=== PATIENT | female | born 1960 | race African-American/Black ===

== ENCOUNTER 2016-09-03 00:24 | Emergency (ER) | payer MEDICAID ==
[~2016-09-03] VITALS: Ht 165.1 cm; Wt 80.0 kg
[2016-09-03] MEDS ORDERED: MORPHINE SULFATE 4 MG/ML CPJ (NOT FOR IM USE) IV STA (01:37)
[2016-09-03] MEDS ORDERED: ONDANSETRON HCL 4MG/2ML VIAL IV STA (01:37)
[2016-09-03 01:50] LABS: BASOPHILS % 0.7 % (0.0-2.0); EOSINOPHILS % 2.2 % (0.0-5.0); HEMATOCRIT. 39.1 % (36.0-48.0); HEMOGLOBIN. 13.2 g/dL (12.0-16.0); LYMPHOCYTES % 43.2 % (20.0-50.0); MEAN CORPUSCULAR HEMOGLOBIN 29.5 pg (28.0-32.0); MEAN CORPUSCULAR VOLUME 87.6 fL (81.0-99.0); MEAN PLATELET VOLUME 7.1 fl (7.4-10.4); MONOCYTES % 11.1 % (2.0-8.0); NEUTROPHILS % 42.8 % (40.0-76.0); PLATELET 454 x1000/uL (130-400); RED BLOOD CELL COUNT 4.46 mill/uL (4.2-5.4); RED CELL DISTRIBUTION WIDTH 14.7 % (11.6-14.6)
[2016-09-03 01:55] LABS: CHLORIDE 106 mEq/L (98-107)
[2016-09-03 02:03] LABS: CARBON DIOXIDE 25 mEq/L (21-32)
[2016-09-03] MEDS ORDERED: LORAZEPAM 2MG/ML CPJ IV ONE (03:30)
[2016-09-03] MEDS ORDERED: MORPHINE SULFATE 4 MG/ML CPJ (NOT FOR IM USE) IV ONE (03:30)
[2016-09-03 04:40] VITALS: BP 105/67
== END 2016-09-03 05:00 | disposition home or self-care (01) ==
LOC: ER 00:29
DX: R42 Dizziness and giddiness (principal); Z85.3 Personal history of malignant neoplasm of breast; M54.30 Sciatica, unspecified side; H53.8 Other visual disturbances; J45.909 Unspecified asthma, uncomplicated; Z90.11 Acquired absence of right breast and nipple
CPT/HCPCS: 36415; 70450; 71010; 72100; 80053; 85025; 93970; 96374; 96375; 96376; 99285; J2060; J2270; J2405

== ENCOUNTER 2017-10-31 12:52 | Inpatient (IN) | payer MEDICAID ==
[~2017-10-31] VITALS: Ht 175.3 cm; Wt 63.1 kg
[~2017-10-31 12:52] MED LIST: ATOR10TA PO; DILT30TA38 PO; FERR325T23 PO; RIVA10TA PO
[2017-10-31] MEDS ORDERED: SODIUM CHLORIDE 0.9% 1,000 ML IV ONE ×2 (13:14→16:29)
[2017-10-31] MEDS ORDERED: ONDANSETRON HCL 4MG/2ML VIAL IV STA (13:14)
[2017-10-31] MEDS ORDERED: MORPHINE SULFATE 4 MG/ML CPJ (NOT FOR IM USE) IV STA (13:14)
[2017-10-31] MEDS ORDERED: MORPHINE SULFATE 4 MG/ML CPJ (NOT FOR IM USE) IV ONE ×2 (14:45→16:00)
[2017-10-31 14:47] LABS: HEMATOCRIT. 29.7 % (36.0-48.0); HEMOGLOBIN. 9.4 g/dL (12.0-16.0); MEAN CORPUSCULAR HEMOGLOBIN 24.3 pg (28.0-32.0); MEAN CORPUSCULAR VOLUME 76.7 fL (81.0-99.0); MEAN PLATELET VOLUME 7.4 fl (7.4-10.4); PLATELET 393 x1000/uL (130-400); RED BLOOD CELL COUNT 3.87 mill/uL (4.2-5.4)
[2017-10-31 14:52] LABS: CHLORIDE 100 mEq/L (98-107); INR 1.2; PROTHROMBIN TIME 12.7 sec (9.4-11.6)
[2017-10-31] MEDS ORDERED: POTASSIUM CHLORIDE 20MEQ TABLET SR PO ONE (15:30)
[2017-10-31] MEDS ORDERED: POTASSIUM CHLORIDE INJ 40 MEQ in DEXT 5% WATER 250 ML IV ONE (15:30)
[2017-10-31] MEDS ORDERED: KCL 20MEQ/100ML PREMIX 100 ML IV SCH (16:00)
[2017-10-31 16:19] LABS: PLATELET ESTIMATE NORMAL
[2017-10-31] MEDS ORDERED: ALBUTEROL (0.083%) 2.5MG/3ML NEB HHN STA (17:42)
[2017-10-31] MEDS: MORPHINE SULFATE 4 MG/ML CPJ (NOT FOR IM USE) IV PRN ×2 (18:45→22:54)
[2017-10-31 20:06] LABS: CLARITY URINE CLEAR (CLEAR); COLOR URINE DARK YELLOW (YELLOW); KETONES URINE NEGATIVE (NEGATIVE); LEUKOCYTE ESTERASE URINE TRACE (NEGATIVE); NITRITE URINE NEGATIVE (NEGATIVE); OCCULT BLOOD URINE NEGATIVE (NEGATIVE); PROTEIN URINE 1+ (NEGATIVE); SPECIFIC GRAVITY URINE 1.034 (1.005-1.030)
[2017-10-31 20:15] LABS: *AMPHETAMINES SCREEN URINE NEGATIVE (NEGATIVE); *BARBITURATES SCREEN URINE NEGATIVE (NEGATIVE)
[2017-10-31 20:17] LABS: *BENZODIAZEPINES SCREEN URINE PRESUMTIVE POSITIVE (NEGATIVE); *COCAINE SCREEN URINE NEGATIVE (NEGATIVE); CANNABINOID URINE SCREEN NEGATIVE (NEGATIVE); METHADONE URINE SCREEN NEGATIVE (NEGATIVE); OPIATES URINE SCREEN PRESUMTIVE POSITIVE (NEGATIVE); PHENCYCLIDINE URINE SCREEN NEGATIVE (NEGATIVE)
[2017-10-31 22:06] VITALS: BP 124/87
[2017-10-31] MEDS: DILTIAZEM HCL 30MG TABLET PO SCH (22:55)
[2017-10-31] MEDS: ONDANSETRON HCL 4MG/2ML VIAL IV PRN (23:12)
[2017-10-31] MEDS: IPRATROPIUM/ALBUTEROL 0.5-3(2.5)MG/3ML NEB HHN PRN (23:46)
[2017-10-31 23:50] VITALS: BP 120/80
[2017-11-01] VITALS: BP 103/77
[2017-11-01] MEDS: MORPHINE SULFATE 4 MG/ML CPJ (NOT FOR IM USE) IV PRN ×6 (03:11→23:44)
[2017-11-01] MEDS: IPRATROPIUM/ALBUTEROL 0.5-3(2.5)MG/3ML NEB HHN PRN ×2 (03:55→21:14)
[2017-11-01 04:00] VITALS: BP 116/80
[2017-11-01] MEDS: DILTIAZEM HCL 30MG TABLET PO SCH ×4 (06:17→23:44)
[2017-11-01 06:54] LABS: HEMOGLOBIN 10.3 g/dL (12.0-16.0); MEAN CORPUSCULAR VOLUME 77.1 fL (81.0-99.0); PLATELET 440 x1000/uL (130-400); RED BLOOD CELL COUNT 4.28 mill/uL (4.2-5.4); RED CELL DISTRIBUTION WIDTH 18.9 % (11.6-14.6)
[2017-11-01 06:57] LABS: CHLORIDE 101 mEq/L (98-107)
[2017-11-01] MEDS: ONDANSETRON HCL 4MG/2ML VIAL IV PRN ×3 (07:21→20:19)
[2017-11-01 08:00] VITALS: BP 106/74
[2017-11-01] MEDS ORDERED: DILTIAZEM HCL 5MG/ML 5ML VIAL IV NR (08:51)
[2017-11-01] MEDS: PANTOPRAZOLE SODIUM 40 MG/VIAL IV SCH (11:21)
[2017-11-01] MEDS ORDERED: MORPHINE SULFATE 4 MG/ML CPJ (NOT FOR IM USE) IV PRN (11:30)
[2017-11-01 12:00] VITALS: BP 110/87
[2017-11-01] MEDS ORDERED: LOPERAMIDE 2 MG/10 ML UDC PO PRN (15:45)
[2017-11-01 16:00] VITALS: BP 124/90
[2017-11-01 20:00] VITALS: BP 130/95
[2017-11-01] MEDS: ATORVASTATIN CALCIUM 10MG TABLET PO SCH (20:21)
[2017-11-02] MEDS: IPRATROPIUM/ALBUTEROL 0.5-3(2.5)MG/3ML NEB HHN PRN ×3 (00:47→14:10)
[2017-11-02 00:55] VITALS: BP 132/82
[2017-11-02] MEDS: MORPHINE SULFATE 4 MG/ML CPJ (NOT FOR IM USE) IV PRN ×6 (03:21→21:06)
[2017-11-02] MEDS: ONDANSETRON HCL 4MG/2ML VIAL IV PRN ×2 (03:21→12:57)
[2017-11-02 04:00] VITALS: BP 126/89
[2017-11-02] MEDS: DILTIAZEM HCL 30MG TABLET PO SCH ×3 (06:22→16:57)
[2017-11-02 07:11] LABS: HEMATOCRIT. 32.6 % (36.0-48.0); HEMOGLOBIN. 10.1 g/dL (12.0-16.0); MEAN PLATELET VOLUME 7.8 fl (7.4-10.4); PLATELET 451 x1000/uL (130-400); RED BLOOD CELL COUNT 4.23 mill/uL (4.2-5.4); RED CELL DISTRIBUTION WIDTH 18.7 % (11.6-14.6)
[2017-11-02 07:34] LABS: CHLORIDE 99 mEq/L (98-107)
[2017-11-02 08:00] VITALS: BP 121/89
[2017-11-02] MEDS: PANTOPRAZOLE SODIUM 40 MG/VIAL IV SCH (08:23)
[2017-11-02] MEDS ORDERED: DILTIAZEM HCL 5MG/ML 5ML VIAL IV NR (11:00)
[2017-11-02 12:00] VITALS: BP 124/89
[2017-11-02 13:50] LABS: PLATELET ESTIMATE SLIGHTLY INCREASED
[2017-11-02] MEDS ORDERED: LIDOCAINE HCL/PF 1% 2ML VIAL ONE (14:35)
[2017-11-02 16:00] VITALS: BP 113/82
[2017-11-02] MEDS ORDERED: IPRATROPIUM/ALBUTEROL 0.5-3(2.5)MG/3ML NEB HHN PRN (17:30)
[2017-11-02 17:48] LABS: BG BASE EXCESS 3.7 mmol/L (-2.0-2.0); BG CARBOXYHEMOGLOBIN 0.4 % (0.5-1.5); BG DEOXYHEMOGLOBIN 9.6 % (0.0-5.0); BG FRACTION INSPIRED OXYGEN 34; BG HCO3 ACT 28.8 mmol/L (22.0-26.0); BG METHEMOGLOBIN 0.2 % (0.0-1.5); BG OXYGEN SATURATION 90.3 % (92.0-98.5); BG OXYHEMOGLOBIN 89.8 % (94.0-97.0); BG PCO2 45.8 mmHg (35.0-45.0); BG PH 7.416 (7.350-7.450); BG PO2 60.2 mmHg (75.0-100.0); BG SAMPLE SITE LEFT BRACHIAL; BG TOTAL HEMOGLOBIN 11.5 g/dL (12.0-18.0); BG VENT MODE NASAL CANNULA
[2017-11-02] MEDS: IPRATROPIUM/ALBUTEROL 0.5-3(2.5)MG/3ML NEB HHN SCH ×2 (17:53→22:03)
[2017-11-02] MEDS: METHYLPREDNISOLONE SOD SUCC 40 MG/ML VIAL IV SCH (18:02)
[2017-11-02 20:00] VITALS: BP 125/88
[2017-11-02] MEDS: CEFTRIAXONE 2 G in DEXTROSE 5% WATER 50 ML IV SCH (21:07)
[2017-11-02] MEDS: ATORVASTATIN CALCIUM 10MG TABLET PO SCH (21:07)
[2017-11-02] MEDS: METOPROLOL TARTRATE 50MG TABLET PO SCH (21:07)
[2017-11-03] VITALS (7 sets, daily range): BP systolic 89–133; BP diastolic 64–93
[2017-11-03] MEDS: ONDANSETRON HCL 4MG/2ML VIAL IV PRN ×2 (00:11→14:28)
[2017-11-03] MEDS: MORPHINE SULFATE 4 MG/ML CPJ (NOT FOR IM USE) IV PRN ×7 (00:12→21:35)
[2017-11-03] MEDS: ACETYLCYSTEINE 100MG/ML 10% VIAL 4ML INH SCH (00:35)
[2017-11-03] MEDS: IPRATROPIUM/ALBUTEROL 0.5-3(2.5)MG/3ML NEB HHN SCH ×4 (00:35→20:37)
[2017-11-03] MEDS: METHYLPREDNISOLONE SOD SUCC 40 MG/ML VIAL IV SCH ×3 (03:38→17:17)
[2017-11-03] MEDS: DILTIAZEM HCL 30MG TABLET PO SCH ×4 (05:57→17:18)
[2017-11-03 07:30] LABS: HEMATOCRIT. 31.8 % (36.0-48.0); MEAN CORPUSCULAR HEMOGLOBIN 24.3 pg (28.0-32.0); MEAN CORPUSCULAR VOLUME 77.2 fL (81.0-99.0); MEAN PLATELET VOLUME 7.9 fl (7.4-10.4); PLATELET 488 x1000/uL (130-400); RED BLOOD CELL COUNT 4.11 mill/uL (4.2-5.4); RED CELL DISTRIBUTION WIDTH 18.8 % (11.6-14.6)
[2017-11-03 07:50] LABS: CHLORIDE 98 mEq/L (98-107)
[2017-11-03] MEDS: FAMOTIDINE 20MG TABLET PO SCH ×2 (08:51→17:17)
[2017-11-03] MEDS: METOPROLOL TARTRATE 50MG TABLET PO SCH ×2 (08:51→20:53)
[2017-11-03 09:49] LABS: PLATELET ESTIMATE SLIGHTLY INCREASED
[2017-11-03] MEDS ORDERED: SODIUM BICARBONATE 4% (2.4MEQ) 5ML VIAL IV ONE (12:27)
[2017-11-03] MEDS ORDERED: LIDOCAINE HCL 1% 20ML VIAL (Pyxis) INJ ONE (12:27)
[2017-11-03] MEDS: CEFTRIAXONE 2 G in DEXTROSE 5% WATER 50 ML IV SCH (20:58)
[2017-11-03] MEDS: ATORVASTATIN CALCIUM 10MG TABLET PO SCH (20:58)
[2017-11-04] VITALS: BP 108/59
[2017-11-04] MEDS: MORPHINE SULFATE 4 MG/ML CPJ (NOT FOR IM USE) IV PRN ×7 (03:14→22:02)
[2017-11-04 04:00] VITALS: BP 106/63
[2017-11-04] MEDS: IPRATROPIUM/ALBUTEROL 0.5-3(2.5)MG/3ML NEB HHN SCH ×5 (04:30→20:59)
[2017-11-04] MEDS: DILTIAZEM HCL 30MG TABLET PO SCH ×4 (06:00→18:00)
[2017-11-04 08:00] VITALS: BP 102/70
[2017-11-04] MEDS: METOPROLOL TARTRATE 50MG TABLET PO SCH ×2 (09:00→20:52)
[2017-11-04] MEDS: FAMOTIDINE 20MG TABLET PO SCH ×2 (09:19→18:55)
[2017-11-04] MEDS: METHYLPREDNISOLONE SOD SUCC 40 MG/ML VIAL IV SCH (09:21)
[2017-11-04] MEDS ORDERED: IOHEXOL-350 100 ML BOTTLE ONE (10:30)
[2017-11-04 12:00] VITALS: BP 106/78
[2017-11-04] MEDS: ACETYLCYSTEINE 100MG/ML 10% VIAL 4ML INH SCH ×2 (12:18→16:12)
[2017-11-04 16:00] VITALS: BP 102/75
[2017-11-04] MEDS: ONDANSETRON HCL 4MG/2ML VIAL IV PRN (19:43)
[2017-11-04 20:00] VITALS: BP 112/78
[2017-11-04] MEDS: CEFTRIAXONE 2 G in DEXTROSE 5% WATER 50 ML IV SCH (20:51)
[2017-11-04] MEDS: ATORVASTATIN CALCIUM 10MG TABLET PO SCH (20:52)
[2017-11-05] VITALS: BP 103/68
[2017-11-05] MEDS: IPRATROPIUM/ALBUTEROL 0.5-3(2.5)MG/3ML NEB HHN SCH ×6 (00:27→20:36)
[2017-11-05] MEDS: ACETYLCYSTEINE 100MG/ML 10% VIAL 4ML INH SCH ×3 (00:28→23:23)
[2017-11-05] MEDS: MORPHINE SULFATE 4 MG/ML CPJ (NOT FOR IM USE) IV PRN ×6 (00:56→21:43)
[2017-11-05 04:00] VITALS: BP 103/73
[2017-11-05] MEDS: ONDANSETRON HCL 4MG/2ML VIAL IV PRN ×3 (05:14→23:46)
[2017-11-05] MEDS: DILTIAZEM HCL 30MG TABLET PO SCH ×4 (05:19→18:00)
[2017-11-05 07:32] VITALS: BP 96/66
[2017-11-05] MEDS ORDERED: PREDNISONE 20MG TABLET PO SCH (09:00)
[2017-11-05] MEDS: METOPROLOL TARTRATE 50MG TABLET PO SCH ×2 (09:00→21:00)
[2017-11-05] MEDS: FAMOTIDINE 20MG TABLET PO SCH ×2 (09:25→18:44)
[2017-11-05] MEDS ORDERED: METOCLOPRAMIDE HCL 10MG/2ML VIAL IV PRN (10:00)
[2017-11-05] MEDS ORDERED: BISACODYL 10MG SUPP PR PRN (10:15)
[2017-11-05 12:29] VITALS: BP_SYST 100; BP_SYST 106; BP_DIAS 69; BP_DIAS 79
[2017-11-05 12:57] LABS: HEMATOCRIT. 34.4 % (36.0-48.0); HEMOGLOBIN. 10.7 g/dL (12.0-16.0); MEAN CORPUSCULAR HEMOGLOBIN 23.8 pg (28.0-32.0); MEAN CORPUSCULAR VOLUME 76.4 fL (81.0-99.0); MEAN PLATELET VOLUME 7.8 fl (7.4-10.4); PLATELET 435 x1000/uL (130-400); RED CELL DISTRIBUTION WIDTH 19.2 % (11.6-14.6)
[2017-11-05 13:24] LABS: CHLORIDE 99 mEq/L (98-107)
[2017-11-05] MEDS ORDERED: NA PHOS,M-B/NA PHOS,DI-BA ENEMA 118ML PR PRN (15:15)
[2017-11-05 16:00] VITALS: BP 132/46
[2017-11-05 17:46] LABS: PLATELET ESTIMATE SLIGHTLY INCREASED
[2017-11-05] MEDS: METOCLOPRAMIDE HCL 10MG/2ML VIAL IV SCH ×2 (18:44→22:00)
[2017-11-05 20:00] VITALS: BP 104/73
[2017-11-05] MEDS: CEFTRIAXONE 2 G in DEXTROSE 5% WATER 50 ML IV SCH (21:41)
[2017-11-05] MEDS: ATORVASTATIN CALCIUM 10MG TABLET PO SCH (21:41)
[2017-11-06] VITALS: BP 106/77
[2017-11-06] MEDS: MORPHINE SULFATE 4 MG/ML CPJ (NOT FOR IM USE) IV PRN ×3 (01:34→09:53)
[2017-11-06 04:00] VITALS: BP 102/70
[2017-11-06] MEDS: IPRATROPIUM/ALBUTEROL 0.5-3(2.5)MG/3ML NEB HHN SCH ×2 (04:00)
[2017-11-06] MEDS: DILTIAZEM HCL 30MG TABLET PO SCH ×4 (05:42→17:48)
[2017-11-06] MEDS: METOCLOPRAMIDE HCL 10MG/2ML VIAL IV SCH ×4 (05:43→21:59)
[2017-11-06 05:50] LABS: HEMATOCRIT. 34.5 % (36.0-48.0); HEMOGLOBIN. 10.7 g/dL (12.0-16.0); MEAN CORPUSCULAR HEMOGLOBIN 23.6 pg (28.0-32.0); MEAN CORPUSCULAR VOLUME 76.4 fL (81.0-99.0); MEAN PLATELET VOLUME 8.2 fl (7.4-10.4); PLATELET 419 x1000/uL (130-400); RED BLOOD CELL COUNT 4.52 mill/uL (4.2-5.4); RED CELL DISTRIBUTION WIDTH 19.3 % (11.6-14.6)
[2017-11-06 07:05] LABS: CHLORIDE 96 mEq/L (98-107)
[2017-11-06 08:00] VITALS: BP 98/76
[2017-11-06] MEDS ORDERED: PREDNISONE 20MG TABLET PO SCH (09:00)
[2017-11-06] MEDS: METOPROLOL TARTRATE 50MG TABLET PO SCH ×2 (09:00→20:50)
[2017-11-06] MEDS: FAMOTIDINE 20MG TABLET PO SCH ×2 (09:06→17:47)
[2017-11-06] MEDS ORDERED: SODIUM CHLORIDE 0.9% 250 ML IV ONE (11:45)
[2017-11-06 12:00] VITALS: BP 106/73
[2017-11-06 13:10] LABS: PLATELET ESTIMATE SLIGHTLY INCREASED
[2017-11-06] MEDS: HYDROMORPHONE HCL/PF 2MG/ML CPJ IV PRN ×3 (13:57→21:59)
[2017-11-06] MEDS: ONDANSETRON HCL 4MG/2ML VIAL IV PRN (13:57)
[2017-11-06] MEDS: IPRATROPIUM BROMIDE (0.02%) 0.5MG/2.5ML NEB HHN PRN (15:45)
[2017-11-06] MEDS: BUDESONIDE 0.5MG/2ML NEB HHN SCH ×2 (15:46→19:54)
[2017-11-06 16:00] VITALS: BP 96/60
[2017-11-06] MEDS ORDERED: RIVAROXABAN 10 MG TABLET PO SCH (17:00)
[2017-11-06 20:00] VITALS: BP 115/82
[2017-11-06] MEDS: CEFTRIAXONE 2 G in DEXTROSE 5% WATER 50 ML IV SCH (20:48)
[2017-11-06] MEDS: ATORVASTATIN CALCIUM 10MG TABLET PO SCH (20:48)
[2017-11-07] VITALS (7 sets, daily range): BP systolic 95–134; BP diastolic 52–86
[2017-11-07] MEDS: DILTIAZEM HCL 30MG TABLET PO SCH ×4 (00:23→18:00)
[2017-11-07] MEDS: HYDROMORPHONE HCL/PF 2MG/ML CPJ IV PRN ×6 (02:00→22:31)
[2017-11-07] MEDS: METOPROLOL TARTRATE 50MG TABLET PO SCH ×3 (02:10→21:00)
[2017-11-07] MEDS: METOCLOPRAMIDE HCL 10MG/2ML VIAL IV SCH ×4 (04:04→22:05)
[2017-11-07] MEDS: ONDANSETRON HCL 4MG/2ML VIAL IV PRN (05:18)
[2017-11-07 07:19] LABS: HEMATOCRIT. 35.2 % (36.0-48.0); HEMOGLOBIN. 10.9 g/dL (12.0-16.0); MEAN CORPUSCULAR VOLUME 77.1 fL (81.0-99.0); MEAN PLATELET VOLUME 8.1 fl (7.4-10.4); PLATELET 423 x1000/uL (130-400); RED BLOOD CELL COUNT 4.56 mill/uL (4.2-5.4); RED CELL DISTRIBUTION WIDTH 19.2 % (11.6-14.6)
[2017-11-07 07:25] LABS: CHLORIDE 94 mEq/L (98-107)
[2017-11-07] MEDS: BUDESONIDE 0.5MG/2ML NEB HHN SCH (09:19)
[2017-11-07] MEDS: IPRATROPIUM BROMIDE (0.02%) 0.5MG/2.5ML NEB HHN PRN ×2 (09:19→21:08)
[2017-11-07] MEDS ORDERED: METRONIDAZOLE 250MG TABLET PO SCH (10:30)
[2017-11-07] MEDS: FAMOTIDINE 20MG TABLET PO SCH ×2 (11:11→16:55)
[2017-11-07] MEDS ORDERED: PROMETHAZINE HCL 25MG SUPP PR PRN (12:00)
[2017-11-07] MEDS: METRONIDAZOLE 500MG TABLET PO SCH ×2 (12:49→22:04)
[2017-11-07 14:36] LABS: PLATELET ESTIMATE SLIGHTLY INCREASED
[2017-11-07] MEDS: RIVAROXABAN 20 MG TABLET PO SCH (16:55)
[2017-11-07] MEDS: CEFTRIAXONE 2 G in DEXTROSE 5% WATER 50 ML IV SCH (20:54)
[2017-11-07] MEDS: ATORVASTATIN CALCIUM 10MG TABLET PO SCH (22:04)
[2017-11-08] VITALS: BP 93/65
[2017-11-08] MEDS: HYDROMORPHONE HCL/PF 2MG/ML CPJ IV PRN ×6 (02:41→23:59)
[2017-11-08 04:00] VITALS: BP 92/67
[2017-11-08] MEDS: METOCLOPRAMIDE HCL 10MG/2ML VIAL IV SCH ×4 (04:59→22:30)
[2017-11-08] MEDS: DILTIAZEM HCL 30MG TABLET PO SCH ×4 (06:00→17:55)
[2017-11-08] MEDS: METRONIDAZOLE 500MG TABLET PO SCH ×3 (06:35→22:29)
[2017-11-08] MEDS: ONDANSETRON HCL 4MG/2ML VIAL IV PRN (06:35)
[2017-11-08 07:13] LABS: HEMATOCRIT. 34.2 % (36.0-48.0); HEMOGLOBIN. 10.5 g/dL (12.0-16.0); MEAN CORPUSCULAR HEMOGLOBIN 23.8 pg (28.0-32.0); MEAN CORPUSCULAR VOLUME 77.6 fL (81.0-99.0); MEAN PLATELET VOLUME 8.2 fl (7.4-10.4); PLATELET 405 x1000/uL (130-400); RED CELL DISTRIBUTION WIDTH 19.4 % (11.6-14.6)
[2017-11-08 07:30] LABS: CHLORIDE 94 mEq/L (98-107)
[2017-11-08 08:00] VITALS: BP 103/69
[2017-11-08] MEDS: IPRATROPIUM BROMIDE (0.02%) 0.5MG/2.5ML NEB HHN PRN (08:42)
[2017-11-08] MEDS: BUDESONIDE 0.5MG/2ML NEB HHN SCH ×2 (08:53→21:25)
[2017-11-08] MEDS: METOPROLOL TARTRATE 50MG TABLET PO SCH ×2 (09:00→22:30)
[2017-11-08] MEDS: FAMOTIDINE 20MG TABLET PO SCH ×2 (09:14→17:43)
[2017-11-08] MEDS ORDERED: HYDROMORPHONE HCL/PF 2MG/ML CPJ IV NR (10:30)
[2017-11-08 11:13] LABS: PLATELET ESTIMATE SLIGHTLY DECREASED
[2017-11-08 12:00] VITALS: BP 105/73
[2017-11-08] MEDS: PROCHLORPERAZINE 10MG/2ML VIAL IM PRN (13:16)
[2017-11-08 16:00] VITALS: BP 99/73
[2017-11-08] MEDS: RIVAROXABAN 20 MG TABLET PO SCH (17:43)
[2017-11-08 20:00] VITALS: BP 108/70
[2017-11-08] MEDS: ATORVASTATIN CALCIUM 10MG TABLET PO SCH (22:29)
[2017-11-08] MEDS: CEFTRIAXONE 2 G in DEXTROSE 5% WATER 50 ML IV SCH (22:29)
[2017-11-09] VITALS (8 sets, daily range): BP systolic 96–162; BP diastolic 66–94
[2017-11-09] MEDS: IPRATROPIUM BROMIDE (0.02%) 0.5MG/2.5ML NEB HHN PRN ×5 (00:13→23:59)
[2017-11-09] MEDS: BUDESONIDE 0.5MG/2ML NEB HHN SCH ×2 (00:48→08:36)
[2017-11-09] MEDS: DILTIAZEM HCL 30MG TABLET PO SCH ×5 (01:27→23:30)
[2017-11-09] MEDS: METOCLOPRAMIDE HCL 10MG/2ML VIAL IV SCH ×4 (03:54→21:52)
[2017-11-09] MEDS: HYDROMORPHONE HCL/PF 2MG/ML CPJ IV PRN ×6 (03:54→22:06)
[2017-11-09] MEDS: METRONIDAZOLE 500MG TABLET PO SCH ×3 (05:38→21:52)
[2017-11-09 07:19] LABS: HEMATOCRIT. 32.3 % (36.0-48.0); HEMOGLOBIN. 10.2 g/dL (12.0-16.0); MEAN CORPUSCULAR HEMOGLOBIN 24.3 pg (28.0-32.0); MEAN CORPUSCULAR VOLUME 76.7 fL (81.0-99.0); MEAN PLATELET VOLUME 8.3 fl (7.4-10.4); PLATELET 375 x1000/uL (130-400); RED BLOOD CELL COUNT 4.21 mill/uL (4.2-5.4); RED CELL DISTRIBUTION WIDTH 19.5 % (11.6-14.6)
[2017-11-09 08:03] LABS: CHLORIDE 92 mEq/L (98-107)
[2017-11-09] MEDS: FAMOTIDINE 20MG TABLET PO SCH ×2 (09:36→16:43)
[2017-11-09] MEDS: METOPROLOL TARTRATE 50MG TABLET PO SCH ×2 (09:37→21:00)
[2017-11-09] MEDS: PROCHLORPERAZINE 10MG/2ML VIAL IM PRN (14:03)
[2017-11-09] MEDS: RIVAROXABAN 20 MG TABLET PO SCH (16:43)
[2017-11-09 17:25] LABS: PLATELET ESTIMATE NORMAL
[2017-11-09] MEDS: ONDANSETRON HCL 4MG/2ML VIAL IV PRN (18:38)
[2017-11-09] MEDS: CEFTRIAXONE 2 G in DEXTROSE 5% WATER 50 ML IV SCH (20:00)
[2017-11-09] MEDS: ATORVASTATIN CALCIUM 10MG TABLET PO SCH (21:52)
[2017-11-10] VITALS: BP 112/58
[2017-11-10] MEDS: HYDROMORPHONE HCL/PF 2MG/ML CPJ IV PRN ×3 (02:18→06:36)
[2017-11-10 04:00] VITALS: BP 113/74
[2017-11-10] MEDS: METOCLOPRAMIDE HCL 10MG/2ML VIAL IV SCH ×2 (04:24→10:30)
[2017-11-10] MEDS: METRONIDAZOLE 500MG TABLET PO SCH ×2 (05:20→14:05)
[2017-11-10] MEDS: DILTIAZEM HCL 30MG TABLET PO SCH ×2 (05:21→14:05)
[2017-11-10 05:37] LABS: HEMATOCRIT. 33.5 % (36.0-48.0); HEMOGLOBIN. 10.3 g/dL (12.0-16.0); MEAN CORPUSCULAR HEMOGLOBIN 23.7 pg (28.0-32.0); MEAN CORPUSCULAR VOLUME 76.7 fL (81.0-99.0); MEAN PLATELET VOLUME 8.2 fl (7.4-10.4); PLATELET 400 x1000/uL (130-400); RED BLOOD CELL COUNT 4.36 mill/uL (4.2-5.4); RED CELL DISTRIBUTION WIDTH 19.7 % (11.6-14.6)
[2017-11-10 08:00] VITALS: BP 91/72
[2017-11-10] MEDS: FAMOTIDINE 20MG TABLET PO SCH (08:53)
[2017-11-10] MEDS: METOPROLOL TARTRATE 50MG TABLET PO SCH (08:53)
[2017-11-10] MEDS: IPRATROPIUM BROMIDE (0.02%) 0.5MG/2.5ML NEB HHN PRN ×2 (09:36→11:55)
[2017-11-10 12:30] VITALS: BP 135/85
[2017-11-10 13:58] VITALS: BP 135/85
[2017-11-10 16:21] LABS: PLATELET ESTIMATE NORMAL
== END 2017-11-10 15:10 | disposition home or self-care (01) | DRG 281 ==
LOC: ER 12:52 → 5WST 15:38 → ENRESERV 19:41
PROVIDERS: ADMIT Internal Medicine; ATTEND Internal Medicine
PROC: 0W9G3ZZ Drainage of Peritoneal Cavity, Percutaneous Approach (ICD-10-PCS; principal; 2017-11-03)
PROC: 0W9B3ZZ Drainage of Left Pleural Cavity, Percutaneous Approach (ICD-10-PCS; 2017-11-03)
DX: C78.7 Secondary malignant neoplasm of liver and intrahepatic bile duct (principal); J96.00 Acute respiratory failure, unspecified whether with hypoxia or hypercapnia; A41.9 Sepsis, unspecified organism; E43 Unspecified severe protein-calorie malnutrition; J90 Pleural effusion, not elsewhere classified; J18.9 Pneumonia, unspecified organism; C78.6 Secondary malignant neoplasm of retroperitoneum and peritoneum; T79.A3XA Traumatic compartment syndrome of abdomen, initial encounter; R18.8 Other ascites; J44.0 Chronic obstructive pulmonary disease with (acute) lower respiratory infection; D68.59 Other primary thrombophilia; I27.20 Pulmonary hypertension, unspecified; I50.9 Heart failure, unspecified; J44.1 Chronic obstructive pulmonary disease with (acute) exacerbation; I48.91 Unspecified atrial fibrillation; E87.6 Hypokalemia; E78.5 Hyperlipidemia, unspecified; D50.9 Iron deficiency anemia, unspecified; I47.1 Supraventricular tachycardia; X58.XXXA Exposure to other specified factors, initial encounter; Z90.11 Acquired absence of right breast and nipple; Z79.01 Long term (current) use of anticoagulants; Z92.21 Personal history of antineoplastic chemotherapy; Z85.3 Personal history of malignant neoplasm of breast; Z68.20 Body mass index [BMI] 20.0-20.9, adult; Z86.711 Personal history of pulmonary embolism; Z79.899 Other long term (current) drug therapy
CPT/HCPCS: 32555; 36415; 36600; 49083; 71045; 71275; 74018; 74176; 76700; 80048; 80053; 80305; 81003; 82040; 82105; 82150; 82375; 82378; 82805; 83615; 83690; 83880; 84484; 85025; 85027; 85610; 86300; 86301; 86304; 87070; 87205; 88108; 88312; 89050; 93005; 93970; 94640; 96361; 96374; 96375; 96376; 97162; 97166; 97530; 99285; C1893; C9113; J0696; J0780; J1170; J2270; J2405; J2765; J2920; J3480; J3490; J7030; J7040; J7050; J7060; J7512; J7608; J7611; J7620; J7626; Q9967